=== PATIENT | female | born 1985 | race Hispanic/Latino ===

== ENCOUNTER 2024-11-28 23:00 | Emergency (ER) | payer SELFPAY ==
[2024-11-29 00:04] LABS: Absolute Basophils 0.1 K/uL (0-0.5); Absolute Eosinophils 0.1 K/uL (0-0.5); Absolute Lymphocytes (CBC) 3.1 K/uL (0.7-4.9); Absolute Monocytes 0.4 K/uL (0.1-1.3); Absolute Neutrophil 5.9 K/uL (1.8-8.0); Eosinophils % 0.6 % (0-4.4); Hematocrit 37.8 % (36.0-45.0); Hemoglobin 12.6 g/dL (12.0-15.0); Lymphocytes % 32.2 % (15.3-44.8); MCH 29.8 pg (27.0-35.0); MCHC 33.4 g/dL (32.0-36.0); MCV 89.2 fL (80-100); MPV 8.9 fL (7.6-11.3); Monocytes % 4.5 % (3.3-12.3); Neutrophils % 61.7 % (41.7-73.7); Platelets 278 thou/uL (152-406); RBC Red Blood Cell Count 4.24 M/uL (3.86-4.86); Red Cell Distribution Width 14.4 % (12.1-15.2)
[2024-11-29 00:19] LABS: Specific Gravity > 1.030 (1.005-1.030)
[2024-11-29 00:20] LABS: Specific Gravity > 1.030 (1.005-1.030); Urine Bacteria 20-50 /HPF (<20); Urine Bilirubin NEGATIVE (Negative); Urine Blood 1+ (Negative); Urine Clarity Extremely Turbid (Clear); Urine Color Yellow (Yellow); Urine Culture Reflex Order NOT NEEDED; Urine Glucose NEGATIVE (Negative); Urine Ketones NEGATIVE (Negative); Urine Microscopic Reflex YN ORDER UMIC; Urine Mucus 4+ /HPF (None Seen); Urine Nitrite NEGATIVE (Negative); Urine Protein 1+ (Negative); Urine Urobilinogen 1+ (Normal); Urine WBC <5 /HPF (<5); Urine pH 6.5 (5.0-7.0)
[2024-11-29 00:25] LABS: ALT/SGPT 22 U/L (13-56); Albumin 3.3 g/dL (3.4-5.0); Alkaline Phosphatase 116 U/L (45-117); Anion Gap 9.2 mEq/L (5.0-15.0); BUN Blood Urea Nitrogen 9 mg/dL (7-18); Bicarbonate 24 mEq/L (21-32); Bilirubin Total 0.3 mg/dL (0.2-1.0); Globulin 3.3 g/dL (2.3-3.5); Glomerular Filtration Rate 115 ml/min (=/>90); Glucose Level 109 mg/dL (74-106); Lipase 68 U/L (13-75); Potassium 3.2 mEq/L (3.5-5.1); Protein, Total 6.6 g/dL (6.4-8.2); Sodium Level 136 mEq/L (136-145)
[2024-11-29 00:26] LABS: AST/SGOT < 10 U/L (15-37)
[2024-11-29] MEDS ORDERED: NA CHLORIDE 0.9% 1,000 ML ONE (00:26)
[2024-11-29] MEDS ORDERED: KETOROLAC 30 MG/ML INJ ONE (00:26)
[2024-11-29] MEDS ORDERED: ONDANSETRON 4 MG/2 ML VIAL ONE (00:26)
--- NOTE | 2024-11-29 00:36 | EDPHYS ---
Physician Documentation [facility] Name: Kimi Joshi Age: 39 yrs Sex: Female : 1985 Arrival Date: 11/28/2024 Time: 23:00 Bed 19 Private MD: ED Physician Andrea Granados HPI: 11/28 23:58 This 39 yrs old Female presents to ER via Ambulatory with complaints of kb Abdominal Pain, Nausea/Vomiting. 23:58 Pt is a 39 year old female who presents for diffuse abd pain, n/v/d that started today. kb STates she has chronic abd pain and normally takes norco twice per day. sTates she stopped taking the norco 4 days ago so she could get into rehab. Reports the pain is the same as she has had before. denies fever. . COOK MESS: 11/29 00:42 LMP N/A - , Not aa10 Historical: - Allergies: 11/28 23:14 No Known Allergies; kj2 - Immunization history:: Adult Immunizations unknown. - Infectious Disease History:: Denies. - Social history:: Smoking status: . ROS: 23:58 Constitutional: As per HPI kb Exam: 23:58 Constitutional: This is a well developed, well nourished patient who is awake, alert, kb and in no acute distress. Head/Face: Normocephalic, atraumatic. ENT: Moist Mucous membranes Cardiovascular: Regular rate Respiratory: Respirations even and unlabored. No increased work of breathing. Talking in full sentences Skin: Warm, dry with normal turgor. Normal color. MS/ Extremity: Pulses equal, no cyanosis. Neurovascular intact. Full, normal range of motion. Neuro: Awake and alert, GCS 15, oriented to person, place, time, and situation. 23:58 Abdomen/GI: Inspection: abdomen appears normal, Bowel sounds: normal, Palpation: soft, in all quadrants, mild abdominal tenderness, in all quadrants, Vital Signs: 23:12 BP 109 / 58; Pulse 66; Resp 18; Temp 98.1; Pulse Ox 98% on R/A; Weight 49.9 kg; Height kj2 5 ft. 0 in. ; Pain 8/10; 11/29 01:26 BP 110 / 62; Pulse 68; Resp 20; Temp 99; Pulse Ox 100% on R/A; aa10 11/28 23:12 Body Mass Index 21.48 (49.90 kg, 152.4 cm) kj2 11/28 23:12 Pain Scale: Adult kj2 MDM: 11/28 23:10 Medical Screening Exam initiated kb 11/29 00:00 Differential diagnosis: non-specific abd pain, chronic abd pain, dehydration, abnormal kb electrolytes, opioid withdrawal. Data reviewed: vital signs, nurses notes. 00:34 Test considered but Not performed: CT: ct abd considered but pain is similar to chronic kb pain pt has had in the past, pt is afebrile, nontoxic in appearance, pt has no point tenderness. . Counseling: I had a detailed discussion with the patient and/or guardian regarding the historical points, exam findings, and any diagnostic results supporting the discharge/admit diagnosis, lab results, the need for outpatient follow up, a family practitioner, to return to the emergency department if symptoms worsen or persist or if there are any questions or concerns that arise at home. 11/28 23:19 Order name: CBC with Diff; Complete Time: 00:17 kb 11/28 23:19 Order name: CMP; Complete Time: 00:28 kb 11/28 23:19 Order name: Lipase; Complete Time: 00:28 kb 11/28 23:19 Order name: Test, Urine; Complete Time: 00:22 kb 11/28 23:19 Order name: Urinalysis w/ reflexes; Complete Time: 00:22 kb 11/28 23:19 Order name: IV Saline Lock; Complete Time: 23:49 kb 11/28 23:19 Order name: Labs collected and sent; Complete Time: 23:49 kb Administered Medications: 00:27 Drug: TORadol - Ketorolac IVP 15 mg IVP once Route: IVP; Site: left antecubital; aa10 01:18 Follow up: Response: No adverse reaction; Marked relief of symptoms aa10 00:27 Drug: Ondansetron IVP 4 mg IVP once; over 2 minutes Route: IVP; Site: left antecubital; aa10 01:18 Follow up: Response: No adverse reaction; Marked relief of symptoms aa10 00:27 Drug: NS 0.9% IV 1000 ml IV at 1 bolus Per protocol; to be given as a bolus over 60 aa10 minutes Route: IV; Rate: 1 bolus; Site: left antecubital; 01:17 Follow up: IV Status: Completed infusion; IV Intake: 1000ml aa10 :18 Follow up: Response: No adverse reaction; Marked relief of symptoms aa10 :17 Drug: Potassium Chloride PO 40 mEq PO once Route: PO; 10 :19 Follow up: Response: Medication administered at discharge. aa10 :17 Drug: Macrobid PO 100 mg PO once; administer with food Route: PO; :18 Follow up: Response: Medication administered at discharge. aa10 Disposition: 22:49 Co-signature as Attending Physician, Andrea Granados MD I agree with the assessment sp4 and plan of care. I reviewed the patient's care provided by the Advanced Practice Provider and agree with the diagnosis and treatment plan. Disposition Summary: 11/29/24 00:35 Discharge Ordered Notes: Location: Home kb Condition: Stable kb Diagnosis - UTI/ Urinary tract infection, site not specified kb - Abdominal pain, Generalized kb - Hypokalemia kb Followup: kb - With: Emergency Department - When: As needed - Reason: Worsening of condition Followup: kb - With: Private Physician - When: 2 - 3 days - Reason: Recheck today's complaints, Continuance of care, Re-evaluation by your physician Discharge Instructions: - Discharge Summary Sheet kb - Urinary Tract Infection, Adult, [id number] kb - Abdominal Pain, Adult, [id number] kb - Hypokalemia kb Forms: - Medication Reconciliation Form kb - Antibiotic Education kb - Prescription Opioid Use kb - Patient Portal Instructions kb - Leadership Thank You Letter kb Prescriptions: - ondansetron 4 mg Oral Tablet,disintegrating - take 1 tablet ORAL route every 6 hours As needed; 12 tablet; Refills: 0, kb Product Selection Permitted - Macrobid 100 mg Oral Capsule - take 1 capsule ORAL route every 12 hours for 10 days; 20 capsule; Refills: 0, kb Product Selection Permitted Signatures: Dispatcher [employer] Deb Ramirez FNP-C FNP-Ckb Potepalov, Sergey, MD MD sp4 Niecy Simmosn, RN RN kj2 Mazin Vazquez RN RN aa10
--- NOTE | 2024-11-29 00:36 | ER ---
Nurse's Notes [facility] Name: Kimi Joshi Age: 39 yrs Sex: Female : 1985 Arrival Date: 11/28/2024 Time: 23:00 Bed 19 Private MD: Diagnosis: UTI/ Urinary tract infection, site not specified;Abdominal pain, Generalized;Hypokalemia Presentation: 11/28 23:12 Chief complaint: Patient states: nausea, vomiting, abdominal pain since Wednesday. kj2 Coronavirus screen: Client denies travel out of the [place] in the last 14 days. Ebola Screen: No symptoms or risks identified at this time. Initial Sepsis Screen: Does the patient meet any 2 criteria? No. Patient's initial sepsis screen is negative. Does the patient have a suspected source of infection? No. Patient's initial sepsis screen is negative. Risk Assessment: Do you want to hurt yourself or someone else? Patient reports no desire to harm self or others. Onset of symptoms was November 26, 2024. 23:12 Method Of Arrival: Ambulatory 2 23:12 Acuity: MERCED 3 kj2 Triage Assessment: 23:15 General: Appears in no apparent distress. uncomfortable, Behavior is calm, cooperative. kj2 Pain: Complains of pain in abdomen Pain currently is 8 out of 10 on a pain scale. Neuro: Level of Consciousness is awake, alert, obeys commands, Oriented to person, place, time, situation. Cardiovascular: Respiratory: Airway is patent Respiratory effort is even, unlabored. GI: No signs and/or symptoms were reported involving the gastrointestinal system. : No signs and/or symptoms were reported regarding the genitourinary system. 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 - Infectious Disease History:: Denies. - Social history:: Smoking status: . Screenin/05 00:41 [facility] ED Fall Risk Assessment (Adult) History of falling in the last 3 months, aa10 including since admission No falls in past 3 months (0 pts) Confusion or Disorientation No (0 pts) Intoxicated or Sedated No (0 pts) Impaired Gait No (0 pts) Mobility Assist Device Used No (0 pt) Altered Elimination No (0 pt) Score/Fall Risk Level 0 - 2 = Low Risk Oriented to surroundings, Maintained a safe environment, Educated pt \T\ family on fall prevention, incl call for assistance when getting out of bed, Assessed \T\ reinforced patient's understanding of fall precautions, Provided non-skid footwear, Hourly rounding (assess needs \T\ fall precautionary measures) done. Abuse screen: Denies threats or abuse. Denies injuries from another. Nutritional screening: No deficits noted. Tuberculosis screening: No symptoms or risk factors identified. Assessment: 00:33 General: Appears in no apparent distress. uncomfortable, well groomed, Behavior is aa10 calm, cooperative, appropriate for age, quiet. Pain: Complains of pain in abdomen Pain does not radiate. Pain currently is 6 out of 10 on a pain scale. Quality of pain is described as aching, Pain began gradually, Alleviated by medications, rest, Aggravated by exercise, increased activity. Cardiovascular: No deficits noted. Capillary refill < 3 seconds. Respiratory: No deficits noted. Airway is patent. GI: No deficits noted. Abdomen is flat, Bowel sounds present X 4 quads. Abdomen is tender to palpation X 4 quads. 01:19 Reassessment: Patient appears in no apparent distress at this time. No changes from aa10 previously documented assessment. Patient and/or family updated on plan of care and expected duration. Pain level reassessed. Patient is alert, oriented x 3, equal unlabored respirations, skin warm/dry/pink. Vital Signs: 11/28 23:12 BP 109 / 58; Pulse 66; Resp 18; Temp 98.1; Pulse Ox 98% on R/A; Weight 49.9 kg; Height kj2 5 ft. 0 in. ; Pain 8/10; 03 01:26 BP 110 / 62; Pulse 68; Resp 20; Temp 99; Pulse Ox 100% on R/A; aa10 11/28 23:12 Body Mass Index 21.48 (49.90 kg, 152.4 cm) kj2 11/28 23:12 Pain Scale: Adult kj2 ED Course: 11/28 23:05 Patient arrived in ED. jj6 23:10 [facility] kb 23:10 Andrea Granados MD is Attending Physician. kb 23:14 Triage completed. kj2 23:49 Inserted saline lock: 20 gauge in left forearm, using aseptic technique. Blood rv1 collected. Flushed with 10 mL NS. 23:49 CBC with Diff Sent. rv1 23:49 CMP Sent. rv1 23:49 Lipase Sent. rv1 23:49 Test, Urine Sent. rv1 23:49 Urinalysis w/ reflexes Sent. rv1 03/ 00:42 Patient has correct armband on for positive identification. Allergy band placed. Fall aa10 risk band placed. Placed in gown. Bed in low position. Call light in reach. Side rails up X2. Provided Education on: about plan of care. 00:42 Arm band placed on left wrist. Patient placed on a stretcher. aa10 :19 No provider procedures requiring assistance completed. IV discontinued. aa10 Administered Medications: 00:27 Drug: TORadol - Ketorolac IVP 15 mg IVP once Route: IVP; Site: left antecubital; aa10 :18 Follow up: Response: No adverse reaction; Marked relief of symptoms aa10 :27 Drug: Ondansetron IVP 4 mg IVP once; over 2 minutes Route: IVP; Site: left antecubital; aa10 :18 Follow up: Response: No adverse reaction; Marked relief of symptoms aa10 :27 Drug: NS 0.9% IV 1000 ml IV at 1 bolus Per protocol; to be given as a bolus over 60 aa10 minutes Route: IV; Rate: 1 bolus; Site: left antecubital; :17 Follow up: IV Status: Completed infusion; IV Intake: 1000ml aa10 :18 Follow up: Response: No adverse reaction; Marked relief of symptoms aa10 :17 Drug: Potassium Chloride PO 40 mEq PO once Route: PO; aa10 :19 Follow up: Response: Medication administered at discharge. aa10 :17 Drug: Macrobid PO 100 mg PO once; administer with food Route: PO; aa10 :18 Follow up: Response: Medication administered at discharge. aa10 Medication: 00:42 VIS not applicable for this client. aa10 Intake: :17 IV: 1000ml; Total: 1000ml. aa10 Outcome: 00:35 Discharge ordered by . kb 01:19 Discharged to home ambulatory, aa10 01:19 Condition: good 01:19 Discharge instructions given to patient, Instructed on discharge instructions, Demonstrated understanding of instructions, Prescriptions given X 2, 01:27 Patient left the ED. aa10 Signatures: Deb Welch FNP-C LOADING CHECKER-Mirtha Gordon jj6 Silvia Rodrigues rv1 Niecy Simmons, RN RN kj2 Mazin Vazquez RN RN aa10
[2024-11-29] MEDS ORDERED: POTASSIUM CL SA 10 MEQ TAB PO ONE (01:04)
[2024-11-29] MEDS ORDERED: NITROFURAN MACRO 100 MG CAP PO ONE (01:05)
[2024-11-29 01:53] VITALS: BP 110/62; TEMP 99; O2SAT 100
== END 2024-11-29 01:27 | disposition home or self-care (01) ==
LOC: ER 23:00
DX: N39.0 Urinary tract infection, site not specified (principal); E87.6 Hypokalemia
CPT/HCPCS: 36415; 80053; 81001; 81025; 83690; 85025; J2405; J7030